=== PATIENT | male | born 1995 | race Caucasian/White ===

== ENCOUNTER 2019-09-17 17:08 | Emergency (ER) | payer BC ==
[~2019-09-17] VITALS: Ht 177.8 cm; Wt 90.9 kg
[2019-09-17 17:13] VITALS: BP 134/75
[2019-09-17] MEDS ORDERED: AMOXICILLIN 8751 TAB PO (18:20)
[2019-09-17 18:58] VITALS: PULSE 72; TEMP 98.9
== END 2019-09-17 18:58 | disposition home or self-care (01) ==
LOC: COL.ER 17:08
DX: S51.812A Laceration without foreign body of left forearm, initial encounter (principal); Z23 Encounter for immunization; W54.0XXA Bitten by dog, initial encounter; Y92.009 Unspecified place in unspecified non-institutional (private) residence as the place of occurrence of the external cause

== ENCOUNTER → 2019-10-01 | Outpatient (CLI) | payer BC ==
[~2019-10-01] MED LIST: AMOXICILLIN 8751 TAB PO
[2019-10-01 11:10] VITALS: BP 129/79; PULSE 77; TEMP 97.3
== END ==
LOC: COL.ER 11:07
DX: Z48.02 Encounter for removal of sutures (principal)

== ENCOUNTER 2021-03-25 22:12 | Emergency (ER) | payer BC ==
[~2021-03-25] VITALS: Ht 177.8 cm; Wt 100.0 kg
[2021-03-25 23:19] LABS: BASO # 0.1 (0.0-0.2); BASO % 0.3 % (0.0-2.0); GRAN # 12.5 (1.4-6.5); GRAN % 79.6 % (42.2-75.2); HEMATOCRIT 48.7 % (42.0-52.0); HEMOGLOBIN 17.1 g/dl (13.5-18.0); LYMPH # 2.1 (1.2-3.4); LYMPH % 13.2 % (20.0-51.0); MEAN CELL VOLUME 86 fl (80.0-100.0); MEAN CORPUSCULAR HEMOGLOBIN 30 pg (27.0-31.0); MEAN CORPUSCULAR HGB CONC 35 g/dl (33.0-37.0); MEAN PLATELET VOLUME 8.4 fl (7.4-10.4); MONO % 6.6 % (1.7-9.3); PLATELET COUNT 370 K/mm3 (130-400); RED BLOOD COUNT 5.66 M/mm3 (4.20-5.60); REDCELL DISTRIBUTION WIDTH-CV 12.6 % (11.5-14.5)
[2021-03-25 23:34] LABS: ALANINE AMINOTRANSFERASE 36 U/L (4-49); ALBUMIN 4.8 gm/dL (3.5-5.0); ALCOHOL(ethanol),MEDICAL < 10 mg/dL; ALKALINE PHOSPHATASE 145 U/L (50-136); ANION GAP 12 mmol/L (7-16); AST,SGOT 45 U/L (15-37); BILIRUBIN,TOTAL 1.2 mg/dL (0.0-1.0); BLOOD UREA NITROGEN 14 mg/dL (9-20); C-REACTIVE PROTEIN 1.2 mg/dL (0.0-0.9); CARBON DIOXIDE 23 mmol/L (22-30); CHLORIDE 100 mmol/L (98-107); CREATININE, serum 0.77 (0.66-1.25); GLUCOSE 127 mg/dL (74-106); LIPASE 81 U/L (23-300); POTASSIUM 3.4 mmol/L (3.4-5.0); SODIUM 135 mmol/L (137-145); TOTAL PROTEIN 8.3 gm/dL (6.4-8.2)
[2021-03-26 00:05] LABS: COLLECTION METHOD CLEAN CATCH
[2021-03-26 00:27] LABS: MUCOUS Present /lpf; PH 5 (5-8); SQUAMOUS EPITHELIAL None Seen /hpf; URINE APPEARANCE Hazy; URINE BACTERIA None Seen /hpf; URINE BILIRUBIN Negative (NEGATIVE); URINE BLOOD Negative (NEGATIVE); URINE COLOR Yellow; URINE GLUCOSE Negative (NEGATIVE); URINE KETONE 1+ (NEGATIVE); URINE LEUKOCYTE ESTERASE Negative (NEGATIVE); URINE NITRATE Negative (NEGATIVE); URINE PROTEIN(semi-quant) 2+ (NEGATIVE); URINE RBC 0-2 /hpf; URINE UROBILINOGEN Negative (NEGATIVE)
[2021-03-26 00:36] LABS: TRICYCLIC ANTIDEPRESS URINE NEGATIVE
[2021-03-26 01:51] VITALS: BP 133/73; PULSE 77; TEMP 98.7
== END 2021-03-26 01:40 | disposition home or self-care (01) ==
LOC: COL.ER 22:12
PROVIDERS: Nurse Practitioner Primary Care
DX: K52.9 Noninfective gastroenteritis and colitis, unspecified (principal); F10.20 Alcohol dependence, uncomplicated
CPT/HCPCS: C9113; J2060; J7030; Q9967